=== PATIENT | male | born 1980 | race African-American/Black ===

== ENCOUNTER 2016-12-20 01:53 | Emergency (ER) | payer MEDICAID ==
[2016-12-20] MEDS ORDERED: NORMAL SALINE 1000 ML 1,000 ML IV ONE (04:52)
[2016-12-20] MEDS ORDERED: DIPHENHYDRAMINE HCL 50 MG/ML VIAL IV ONE (04:53)
[2016-12-20] MEDS ORDERED: KETOROLAC TROMETHAMINE INJ/PF 30 MG/1 ML SDV IV ONE (04:53)
--- NOTE | 2016-12-20 05:55 | ER Document Report ---
ED Headache - General Chief Complaint: Headache Stated Complaint: HEADACHE Mode of Arrival: Ambulatory Information source: Patient Notes: Pt is a 36 year old male who presents to the ER today for headache that began a few days ago. He states that it worsened tonight when he drank 12 beers and " got hot." He also complains that his blood pressure is high, but that it gets high when he gets hot, denies blood pressure issues or taking any blood pressure medication. He also would like for me to perform a full physical today. He also requests a chest x-ray as he has had a runny nose and cough for a week without fever but denies any history of asthma. He states the headache is all in his forehead. TRAVEL OUTSIDE OF THE [place] IN LAST 30 DAYS: No - Related Data Allergies/Adverse Reactions: No Known Allergies Allergy (Verified 07/18/16 06:25) Past Medical History - General Information source: Patient - Social History Smoking Status: Unknown if Ever Smoked Family History: Arthritis, CAD, CVA, DM, Hyperlipidemia, Hypertension, Malignancy Pulmonary Medical History: Reports: Hx Pneumonia Renal/ Medical History: Denies: Hx Peritoneal Dialysis Musculoskeltal Medical History: Reports Hx Musculoskeletal Trauma - broken left shoulder Traumatic Medical History: Reports: Hx Fractures - left shoulder Past Surgical History: Reports: Hx Orthopedic Surgery - Immunizations Immunizations up to date: No Hx Diphtheria, Pertussis, Tetanus Vaccination: No Review of Systems - Review of Systems Constitutional: No symptoms reported EENT: No symptoms reported Cardiovascular: No symptoms reported Respiratory: See HPI Gastrointestinal: No symptoms reported Genitourinary: No symptoms reported Male Genitourinary: No symptoms reported Musculoskeletal: No symptoms reported Skin: No symptoms reported Hematologic/Lymphatic: No symptoms reported Neurological/Psychological: See HPI Physical Exam - Notes Notes: PHYSICAL EXAMINATION: GENERAL: slightly intoxicated, but in no acute distress. HEAD: Atraumatic, normocephalic. EYES: Pupils equal round and reactive to light, extraocular movements intact, sclera anicteric, conjunctiva are glassy and erythematous ENT: ear canals without erythema or foreign body, TMs pearly hendrix with good bony landmarks, nares with mucoid discharge, oropharynx clear without exudates. Moist mucous membranes. NECK: Normal range of motion, supple without lymphadenopathy LUNGS: CTAB and equal. No wheezes rales or rhonchi. HEART: Regular rate and rhythm without murmurs EXTREMITIES: Normal range of motion, no pitting edema. No cyanosis. NEUROLOGICAL: Cranial nerves grossly intact. Normal sensory/motor exams. PSYCH: slightly intoxicated but able to form sentences, answer questions and walk on his own SKIN: Warm, Dry, normal turgor, no rashes or lesions noted Course - Re-evaluation Re-evalutation: 12/20/16 06:41 pt feels better after iv fluids and medication for headache. Pt will be discharged home. I did not order a chest x ray as lungs were clear and pt is afebrile and looks well with normal vitals. Pt's blood pressure did reduce after headache relieved. Discharge - Discharge Clinical Impression: Cough, Elevated blood pressure reading Headache Qualifiers: Headache type: unspecified Headache chronicity pattern: acute headache Intractability: not intractable Qualified Code(s): R51 - Headache Condition: Stable Disposition: HOME, SELF-CARE Instructions: Use of Diphenhydramine, Headache ([facility]), Toradol Injection ([facility]) Additional Instructions: Return immediately for any new or worsening symptoms. Follow up with primary care provider, call tomorrow to make followup appointment.
[2016-12-20 08:11] VITALS: BP 132/90
== END 2016-12-20 06:50 | disposition home or self-care (01) ==
LOC: ER 01:53
DX: R51 Headache (principal); R03.0 Elevated blood-pressure reading, without diagnosis of hypertension; F10.129 Alcohol abuse with intoxication, unspecified; R09.89 Other specified symptoms and signs involving the circulatory and respiratory systems; R05 Cough; Z82.49 Family history of ischemic heart disease and other diseases of the circulatory system
CPT/HCPCS: 99284; 96361; 96374; 96375; J1200; J1885; J7030

== ENCOUNTER 2018-01-09 12:32 | Emergency (ER) | payer MEDICAID, OTHER ==
[2018-01-09 12:39] VITALS: BP 126/86
[2018-01-09] MEDS ORDERED: OXYCODONE-ACETAMINOPHEN 5-325 MG TABLET PO ONE (14:22)
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
--- NOTE | 2018-01-09 16:02 | RADIOLOGY REPORT (SQ) ---
EXAM DESCRIPTION: L SPINE WHOLE COMPLETED DATE/TIME: 01/09/2018 3:22 pm REASON FOR STUDY: Fall w/ paraspinal pain COMPARISON: Lumbar spine five views 01/09/2014 NUMBER OF VIEWS: Five views including obliques. TECHNIQUE: AP, lateral, oblique, and sacral radiographic images acquired of the lumbar spine. LIMITATIONS: None. FINDINGS: MINERALIZATION: Normal. SEGMENTATION: Normal. No transitional anatomy. ALIGNMENT: Normal. VERTEBRAE: Maintained height. No fracture or worrisome bone lesion. DISCS: Mild disc space loss of height at L4-5 and L5-S1 POSTERIOR ELEMENTS: Pedicles and facets are intact. No pars defect or posterior arch defects. Mild bilateral L5-S1 facet arthropathy HARDWARE: None in the spine. PARASPINAL SOFT TISSUES: Normal. PELVIS: Not included in the field of view. SI joints unremarkable OTHER: No other significant finding. IMPRESSION: Mild degenerative changes lower lumbar spine. No acute fracture or malalignment TECHNICAL DOCUMENTATION: JOB ID: [id number] [employer]- All Rights Reserved Reading location - IP/workstation name: [email or web address]
== END 2018-01-09 16:31 | disposition home or self-care (01) ==
LOC: ER 12:32
DX: S39.012A Strain of muscle, fascia and tendon of lower back, initial encounter (principal); V19.88XA Pedal cyclist (driver) (passenger) injured in other specified transport accidents, initial encounter; F17.200 Nicotine dependence, unspecified, uncomplicated
CPT/HCPCS: 72110; 99283

== ENCOUNTER 2018-02-01 12:46 | Emergency (ER) | payer MEDICAID ==
[2018-02-01 12:52] VITALS: BP 132/80
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
== END 2018-02-01 13:30 | disposition home or self-care (01) ==
LOC: ER 12:46
DX: M79.641 Pain in right hand (principal); F17.210 Nicotine dependence, cigarettes, uncomplicated
CPT/HCPCS: 99283

== ENCOUNTER 2018-08-08 00:43 | Emergency (ER) | payer MEDICAID ==
[2018-08-08] MEDS ORDERED: IBUPROFEN 600 MG TABLET PO ONE (02:13)
[2018-08-08] MEDS ORDERED: CYCLOBENZAPRINE HCL 10 MG TABLET PO ONE (02:13)
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
--- NOTE | 2018-08-08 02:43 | RADIOLOGY REPORT (SQ) ---
CLINICAL HISTORY: pain COMPARISON: None. TECHNIQUE: XR SHOULDER 2 OR MORE VIEWS 08/08/2018 2:13 AM MATERIALS AND PROCESSES MANAGER FINDINGS: There is no fracture. Joint spaces are preserved. Soft tissues are unremarkable. IMPRESSION: No acute osseous findings.
--- NOTE | 2018-08-08 02:45 | RADIOLOGY REPORT (SQ) ---
CLINICAL HISTORY: pain COMPARISON: None. TECHNIQUE: XR LUMBAR SPINE ANTEROPOSTERIOR, LATERAL, AND OBLIQUES 08/08/2018 2:13 AM COST COORDINATOR FINDINGS: There is no acute fracture. Alignment is anatomic. Disc spaces are maintained. Vertebral body heights are preserved. Soft tissues are unremarkable. IMPRESSION: No acute fracture or subluxation.
[2018-08-08 03:05] VITALS: BP 141/73
== END 2018-08-08 03:05 | disposition home or self-care (01) ==
LOC: ER 00:43
DX: M54.5 Low back pain (principal); M25.512 Pain in left shoulder; G89.29 Other chronic pain; F17.200 Nicotine dependence, unspecified, uncomplicated; Z87.81 Personal history of (healed) traumatic fracture
CPT/HCPCS: 99284; 72110; 73030; J3490 ×2

== ENCOUNTER 2020-06-06 09:01 | Emergency (ER) | payer MEDICAID ==
[2020-06-06] MEDS ORDERED: HYDRALAZINE HCL INJ/PF 20 MG/1 ML SDV IV ONE (09:44)
--- NOTE | 2020-06-06 09:56 | EKG REPORT ---
SEVERITY:- ABNORMAL ECG - SINUS RHYTHM LEFT VENTRICULAR HYPERTROPHY ABNORMAL T, CONSIDER ISCHEMIA, INFERIOR LEADS : Confirmed by: Oscar Spain 06-Jun-2020 09:55:34
--- NOTE | 2020-06-06 10:04 | ER Document Report ---
ED General - General Stated Complaint: HEART POUNDING SENSATION Time Seen by Provider: 06/06/20 09:21 TRAVEL OUTSIDE OF THE [place] IN LAST 30 DAYS: No - HPI Notes: 40-year-old male with a history of untreated hypertension presents to the emergency room today for complaints of that his heart was pounding with an elevated blood pressure. Reports around 7 AM he started to feel his "heart pounding". Denies any chest pain, shortness of breath, nausea vomiting diarrhea. Patient denies any numbness or tingling down his arms legs, facial numbness or tingling, weakness. Patient states he did have a headache around I have ordered additional IV fluids for sepsis protocol, I have ordered antibiotics. Patient's blood pressure was 194/111. Patient states that he was diagnosed with hypertension 5 years ago, when he was released from [facility] 6 months ago, he was not given any blood pressure medication. Reports that he was seen by a primary care doctor, they did not address his blood pressure at that time. Patient denies any illicit drug use. States his heart is not pounding now. - Related Data Allergies/Adverse Reactions: No Known Allergies Allergy (Verified 02/01/18 12:48) Past Medical History - General Information source: Patient - Social History Smoking Status: Current Every Day Smoker Family History: Arthritis, CAD, CVA, DM, Hyperlipidemia, Hypertension, Malignancy Pulmonary Medical History: Reports: Hx Pneumonia Renal/ Medical History: Denies: Hx Peritoneal Dialysis Musculoskeletal Medical History: Reports Hx Musculoskeletal Trauma - broken left shoulder Traumatic Medical History: Reports: Hx Fractures - left shoulder Past Surgical History: Reports: Hx Orthopedic Surgery - Immunizations Immunizations up to date: No Hx Diphtheria, Pertussis, Tetanus Vaccination: No Physical Exam - Vital signs Vitals: Resp BP Pulse Ox 15 177/113 H 100 06/06/20 09:19 06/06/20 09:19 06/06/20 09:19 Course - Re-evaluation Re-evalutation: 06/06/20 14:25 Afebrile vital stable no distress. Nurses notes reviewed. CBC negative for leukocytosis or anemia, CMP negative for hepatic or renal dysfunction, no electrolyte disturbances. CT head unremarkable for any acute findings. Patient stated he had a slight headache this morning but no headache when I evaluated the patient. TSH 2.02, normal, mag 2.2, creatinine 1.16, BUN 11. No hepatic dysfunction, no electrolyte disturbances. Troponin negative, EKG unremarkable. Patient's blood pressure elevated, 10 mg of hydralazine given IVP, blood pressure did come down some, patient also given Lopressor 25 mg orally. Patient's urinalysis was unremarkable however his drug screen he did test positive for cocaine and feta means of marijuana. Patient previously denied any illicit drug use. Discussed with patient that if he continues to use amphetamin es and cocaine, he will have heart issues as well as blood pressure issues. Discussed with patient the importance of avoiding any illicit drug for concerns of becoming a precursor to stroke, myocardial infarction, etc. patient's blood pressure did reduce. Patient states that he will follow up with the condominium manager as well as a primary care provider. Likely patient's feeling like his heart was racing, increased blood pressure from his baseline and pounding outside of his chest was due to the cocaine and amphetamine use. will write patient for hydrochlorothiazide and losartan for his blood pressure medication management. Patient's heart score is 1 which shows a risk of myocardial infarction 0.9 to 1.7%. patient does not want to stay any longer and would like to leave. He states he just wants his blood pressure medication prescriptions and wants to leave. Refused services with mental health team. patient given resources for outpatient substance abuse therapy such as [facility], mobile crisis and integrated family services. Patient verbalized an understanding of this plan of care and agreed with plan of care. After performing a Medical Screening Examination, I estimate there is LOW risk for ACUTE GLAUCOMA, TEMPORAL ARTERITIS, MENINGITIS, INCRANIAL HEMORRHAGE, or ISCHEMIC STROKE thus I consider the discharge disposition reasonable. I have reevaluated this patient multiple times and no significant life threatening changes are noted. The patient and I have discussed the diagnosis and risks, and we agree with discharging home with close follow-up with the understanding that symptoms and presentations can change. We also discussed returning to the Emergency Department immediately if new or worsening symptoms occur. We have discussed the symptoms which are most concerning (e.g., changing or worsening symptoms, new numbness or weakness, vomiting, fever) that necessitate immediate return. - Vital Signs Vital signs: Temp Pulse Resp BP Pulse Ox 19 159/107 H 100 06/06/20 10:31 06/06/20 10:31 06/06/20 10:31 - Laboratory Result Diagrams: 06/06/20 09:27 06/06/20 09:27 Laboratory results interpreted by me: 06/06/20 06/06/20 06/06/20 09:27 09:27 10:00 RBC 4.23 L MCV 101 H MCH 35.8 H Calcium 10.3 H Total Bilirubin 1.5 H Total Protein 8.3 H Urine Protein 100 H - EKG Interpretation by Me Additional EKG results interpreted by me: 06/06/20 12:41 Normal sinus rhythm, heart rate 77, no STEMI. P axis 74, QRS axis 74, T axis - 49. No prior EKG to 2. No STEMI Discharge - Discharge Clinical Impression: Hypertension, Cocaine abuse, Marijuana abuse, Amphetamine abuse Condition: Stable Disposition: HOME, SELF-CARE Instructions: High Blood Pressure, Requiring Treatment ([facility]), High Blood Pressure ([facility]), Hydrochlorothiazide ([facility]) Additional Instructions: Your labs are normal today. CT of your head was normal.. It is advised that you follow-up with a condominium manager within the next 24 to 48 hours. As well as a primary care provider. Please stop taking using illicit drugs such as cocaine, methamphetamines and marijuana. please follow a low-salt diet and take hypertensive medications as directed. Return immediately for any new or worsening symptoms. Follow up with primary care provider, call tomorrow to make followup appointment. Prescriptions: Losartan Potassium [Cozaar 25 mg Tablet] 25 mg PO DAILY #10 tablet Hydrochlorothiazide 12.5 mg PO DAILY #10 tablet Referrals: VIKA ESTRELLA MD [ACTIVE STAFF] - Follow up in 3-5 days DENVER GUPTA MD [COMMUNITY BASED STAFF] - Follow up in 3-5 days
[2020-06-06 10:10] LABS: ABSOLUTE LYMPHOCYTES (AUTO) 1.8 10^3/uL (0.5-4.7); ABSOLUTE MONOCYTES (AUTO) 0.6 10^3/uL (0.1-1.4); ABSOLUTE NEUT (AUTO) 2.1 10^3/uL (1.7-8.2); BASOPHILS % (AUTO) 0.4 % (0-2); EOSINOPHILS % (AUTO) 0.1 % (0-6); HEMATOCRIT 42.7 % (37.9-51.0); HEMOGLOBIN 15.2 g/dL (13.5-17.0); LYMPHOCYTES % (AUTO) 39.7 % (13-45); MEAN CORPUSCULAR HEMOGLOBIN 35.8 pg (27.0-33.4); MEAN CORPUSCULAR HGB CONC 35.5 g/dL (32.0-36.0); MEAN CORPUSCULAR VOLUME 101 fl (80-97); MONOCYTES % (AUTO) 12.3 % (3-13); PLATELET COUNT 186 10^3/uL (150-450); RED BLOOD COUNT 4.23 10^6/uL (4.35-5.55); SEGMENTED NEUTROPHILS % (AUTO) 47.5 % (42-78); TOTAL CELLS COUNTED % (AUTO) 100 %; WHITE BLOOD COUNT 4.5 10^3/uL (4.0-10.5)
[2020-06-06 10:15] LABS: APPEARANCE,URINE CLEAR; BILIRUBIN,URINE NEGATIVE (NEGATIVE); COLOR,URINE YELLOW; GLUCOSE, URINE NEGATIVE (NEGATIVE); KETONES,URINE NEGATIVE (NEGATIVE); LEUKOCYTE ESTERASE,URINE NEGATIVE (NEGATIVE); NITRITE,URINE NEGATIVE (NEGATIVE); PROTEIN,URINE 100 mg/dL (NEGATIVE); URINE SPECIFIC GRAVITY 1.006; UROBILINOGEN,URINE NEGATIVE mg/dL (<2.0)
[2020-06-06 10:19] LABS: ALBUMIN 4.9 g/dL (3.5-5.0); ALKALINE PHOSPHATASE 61 U/L (38-126); ANION GAP 11 (5-19); ASPARTATE AMINO TRANSFERASE 35 U/L (17-59); BILIRUBIN,DIRECT 0.4 mg/dL (0.0-0.4); BILIRUBIN,TOTAL 1.5 mg/dL (0.2-1.3); BLOOD UREA NITROGEN 11 mg/dL (7-20); CALCIUM 10.3 mg/dL (8.4-10.2); CARBON DIOXIDE 26 mmol/L (22-30); CHLORIDE 101 mmol/L (98-107); GLUCOSE 105 mg/dL (75-110); POTASSIUM 3.8 mmol/L (3.6-5.0); TOTAL PROTEIN 8.3 g/dL (6.3-8.2)
[2020-06-06 10:36] LABS: URINE BARBITURATES SCREEN NEGATIVE; URINE BENZODIAZEPINES SCREEN NEGATIVE; URINE METHADONE SCREEN NEGATIVE; URINE PHENCYCLIDINE SCREEN NEGATIVE
--- NOTE | 2020-06-06 10:40 | RADIOLOGY REPORT (SQ) ---
EXAM DESCRIPTION: CT HEAD WITHOUT IMAGES COMPLETED DATE/TIME: 06/06/2020 10:21 am REASON FOR STUDY: BP 197/111, [place] COMPARISON: None. TECHNIQUE: Axial images acquired through the brain without intravenous contrast. Images reviewed wi th bone, brain and subdural windows. Additional sagittal and coronal reconstructions were generated. Images stored on PACS. All CT scanners at this facility use dose modulation, iterative reconstruction, and/or weight based d osing when appropriate to reduce radiation dose to as low as reasonably achievable (ALARA). [facility]: Dose Right [facility]: CareDose [facility]: Dose Right [facility]: Teradose 4D [facility]: Smart [employer] RADIATION DOSE: CT Rad equipment meets quality standard of care and radiation dose reduction techniq ues were employed. CTDIvol: 53.2 mGy. DLP: 1070 mGy-cm. mGy. LIMITATIONS: None. FINDINGS: VENTRICLES: Normal size and contour. CEREBRUM: No masses. No hemorrhage. No midline shift. No evidence for acute infarction. Normal gra y/white matter differentiation. No areas of low density in the white matter. CEREBELLUM: No masses. No hemorrhage. No alteration of density. No evidence for acute infarction. EXTRAAXIAL SPACES: No fluid collections. No masses. ORBITS AND GLOBE: No intra- or extraconal masses. Normal contour of globe without masses. CALVARIUM: No fracture. PARANASAL SINUSES: No fluid or mucosal thickening. SOFT TISSUES: No mass or hematoma. OTHER: No other significant finding. IMPRESSION: NORMAL BRAIN CT WITHOUT CONTRAST. EVIDENCE OF ACUTE STROKE: NO. COMMENT: Quality ID # [id number]: Final reports with documentation of one or more dose reduction techniques (e.g., Automated exposure control, adjustment of the mA and/or kV according to patient size, use of iterative reconstruction technique) TECHNICAL DOCUMENTATION: JOB ID: [id number] 2010 [employer]- All Rights Reserved Reading location - IP/workstation name: [id number]
[2020-06-06 10:53] LABS: URINE COCAINE SCREEN UNCONFIRMED POSITIVE; URINE MARIJUANA (THC) SCREEN UNCONFIRMED POSITIVE
[2020-06-06] MEDS ORDERED: NORMAL SALINE 1000 ML 1,000 ML IV ONE (11:17)
[2020-06-06] MEDS ORDERED: METOPROLOL TARTRATE 25 MG TABLET PO ONE (11:17)
[2020-06-06] MEDS ORDERED: LOSARTAN POTASSIUM 25 MG TABLET PO ONE (12:30)
[2020-06-06 13:12] VITALS: BP 153/121
== END 2020-06-06 13:14 | disposition home or self-care (01) ==
LOC: ER 09:01
DX: I10 Essential (primary) hypertension (principal); F14.10 Cocaine abuse, uncomplicated; F15.10 Other stimulant abuse, uncomplicated; F12.10 Cannabis abuse, uncomplicated; R51.9 Headache, unspecified; F17.200 Nicotine dependence, unspecified, uncomplicated
CPT/HCPCS: 93005; 99285; 96361; 96374; 36415; 83735; 84443; 85025; 80053; 81001; 84484; 80307; 70450; 93010; J0360; J7030; J3490

== ENCOUNTER 2020-06-06 23:05 | Emergency (ER) | payer MEDICAID ==
--- NOTE | 2020-06-06 23:47 | ER Document Report ---
ED Medical Screen (RME) - General Chief Complaint: Arrhythmia Stated Complaint: HEART RACING/POSSIBLE OVERDOSE ON MED Time Seen by Provider: 06/06/20 23:35 Notes: Patient is a 40-year-old male who presents emergency department with a chief complaint of his heart racing. Patient states that he was seen here in the emergency department earlier today. States that he continues to have symptoms. Stated he felt a little bit better when he left, but once he took a dose of hydrochlorothiazide, his heart again to race again. States that he has some pain in his chest. Drug screen from earlier was positive for cocaine, amphetamines, and marijuana. Exam: Blood pressure 164/113. I have greeted and performed a rapid initial assessment of this patient. A comprehensive ED assessment and evaluation of the patient, analysis of test results and completion of medical decision making process will be conducted by an additional ED providers. TRAVEL OUTSIDE OF THE [place] IN LAST 30 DAYS: No - Related Data Allergies/Adverse Reactions: No Known Allergies Allergy (Verified 02/01/18 12:48) Past Medical History - Social History Drug Abuse: Cocaine, Methamphetamine Family history: None Pulmonary Medical History: Reports: Hx Pneumonia Renal/ Medical History: Denies: Hx Peritoneal Dialysis Musculoskeltal Medical History: Reports Hx Musculoskeletal Trauma - broken left shoulder Traumatic Medical History: Reports: Hx Fractures - left shoulder Past Surgical History: Reports: Hx Orthopedic Surgery - Immunizations Immunizations up to date: No Hx Diphtheria, Pertussis, Tetanus Vaccination: No Physical Exam - Vital signs Vitals: Temp Pulse Resp BP Pulse Ox 97.7 F 75 18 164/113 H 99 06/06/20 23:23 06/06/20 23:23 06/06/20 23:23 06/06/20 23:23 06/06/20 23:23 Course - Vital Signs Vital signs: Temp Pulse Resp BP Pulse Ox 97.7 F 75 18 164/113 H 99 06/06/20 23:23 06/06/20 23:23 06/06/20 23:23 06/06/20 23:23 06/06/20 23:23
--- NOTE | 2020-06-07 00:33 | RADIOLOGY REPORT (SQ) ---
EXAM DESCRIPTION: X-ray, two views of the chest CLINICAL HISTORY: 40 years Male, chest pain COMPARISON: None. FINDINGS: Lungs: There is nonspecific prominence of the perihilar and infrahilar interstitial lung markings. No focal consolidation. There appears to be apical pleural parenchymal scarring bilaterally. No pneumothorax or pleural effusion. Mediastinum: Cardiac and mediastinal silhouette are normal. Bones: Osseous structures are normal. IMPRESSION: Nonspecific prominence the perihilar and infrahilar interstitial lung markings. No acute process.
[2020-06-07 00:56] LABS: ABSOLUTE LYMPHOCYTES (AUTO) 1.6 10^3/uL (0.5-4.7); ABSOLUTE MONOCYTES (AUTO) 0.5 10^3/uL (0.1-1.4); ABSOLUTE NEUT (AUTO) 2.8 10^3/uL (1.7-8.2); BASOPHILS % (AUTO) 0.5 % (0-2); EOSINOPHILS % (AUTO) 0.3 % (0-6); HEMATOCRIT 41.3 % (37.9-51.0); HEMOGLOBIN 14.9 g/dL (13.5-17.0); LYMPHOCYTES % (AUTO) 32.7 % (13-45); MEAN CORPUSCULAR HEMOGLOBIN 36.3 pg (27.0-33.4); MEAN CORPUSCULAR HGB CONC 36.1 g/dL (32.0-36.0); MEAN CORPUSCULAR VOLUME 101 fl (80-97); MONOCYTES % (AUTO) 10.1 % (3-13); PLATELET COUNT 186 10^3/uL (150-450); SEGMENTED NEUTROPHILS % (AUTO) 56.4 % (42-78); TOTAL CELLS COUNTED % (AUTO) 100 %
[2020-06-07] MEDS ORDERED: SUCRALFATE 1 GM TABLET PO ONE (01:18)
[2020-06-07] MEDS ORDERED: LORAZEPAM 1 MG TABLET PO ONE (01:18)
[2020-06-07] MEDS ORDERED: FAMOTIDINE 20 MG TABLET PO ONE (01:18)
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
[2020-06-07 02:16] LABS: ALBUMIN 4.7 g/dL (3.5-5.0); ALKALINE PHOSPHATASE 57 U/L (38-126); ANION GAP 10 (5-19); ASPARTATE AMINO TRANSFERASE 42 U/L (17-59); BILIRUBIN,DIRECT 0.4 mg/dL (0.0-0.4); BILIRUBIN,TOTAL 1.4 mg/dL (0.2-1.3); BLOOD UREA NITROGEN 10 mg/dL (7-20); CALCIUM 9.9 mg/dL (8.4-10.2); CARBON DIOXIDE 24 mmol/L (22-30); CHLORIDE 98 mmol/L (98-107); CREATINE KINASE 462 U/L (55-170); GLUCOSE 113 mg/dL (75-110); POTASSIUM 3.5 mmol/L (3.6-5.0); TOTAL PROTEIN 7.9 g/dL (6.3-8.2)
[2020-06-07 03:01] VITALS: BP 152/103
--- NOTE | 2020-06-07 16:33 | EKG REPORT ---
SEVERITY:- ABNORMAL ECG - SINUS RHYTHM LEFT VENTRICULAR HYPERTROPHY BORDERLINE T ABNORMALITIES, INFERIOR LEADS : Confirmed by: Oscar Spain 07-Jun-2020 16:32:32
== END 2020-06-07 03:02 | disposition home or self-care (01) ==
LOC: ER 23:05
DX: F14.10 Cocaine abuse, uncomplicated (principal); F15.10 Other stimulant abuse, uncomplicated; R00.2 Palpitations; K21.9 Gastro-esophageal reflux disease without esophagitis; Z87.891 Personal history of nicotine dependence
CPT/HCPCS: 93005; 99285; 36415; 82550; 83735; 87070; 84484; 71046; 93010; J3490 ×2